=== PATIENT | female | born 2000 | race African-American/Black ===

== ENCOUNTER 2024-11-04 13:58 | Emergency (ER) | payer BC, SELFPAY ==
--- NOTE | ~2024-11-04 | XR_ITS ---
XR ankle RT min 3V 11/04/2024 14:29 INDICATION: Right ankle pain after injury PROCEDURE: 3 views right ankle COMPARISON: No prior studies for comparison. FINDINGS: Fracture, dislocation or subluxation is not identified. The soft tissues appear within norm al limits. No foreign bodies are identified. IMPRESSION: 1: NO ACUTE BONE OR JOINT ABNORMALITY IDENTIFIED. Reviewed, dictated and finalized at location A.
[2024-11-04 14:09] VITALS: BP 109/65; PULSE 104; RESP 16; TEMP 36.4; O2SAT 96
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
--- OUTSIDE RECORDS SUMMARY | 2024-11-04 15:03 | XMS_ITS | Referral Summary ---
Author Organization [facility] Address [address] [place] [id number] Care Team Providers Care Occupational Health Technician Name Role Phone Unknown, Notinfile Primary Care Provider Unavail able Encounters Date Type Department Care Team Description 09/03/2024 12:07 PM INLETTER - 09/03/2024 3:50 PM [facility] Emergency [address] [address] Abdominal pain (Primary Dx); Right ovarian cyst; Anemia, unspecified type Discharge Disposition: Discharge to home or self care from Last 3 Months Allergies Active Allergy Reactions Criticality Noted Date Comments Mustard Swollen tongue High 07/15/2023 Medications vitamin ferrous fumarate-folic () 28 mg iron- 800 mcg tablet Take 1 tablet by mouth daily 30 tablet 11 3 Active nitrofurantoin monohydrate (MACROBID) 100 mg capsule Take 1 capsule (100 mg total) by mouth 2 (two) times a day 10 capsule 4 Active ondansetron ODT (ZOFRAN-ODT) 4 mg disintegrating tablet Take 1 tablet (4 mg total) by mouth every 8 (eight) hours as needed for nausea or vomiting 20 tablet 4 Active ibuprofen (ADVIL,MOTRIN) 800 mg tablet Take 1 tablet (800 mg total) by mouth 3 (three) times a day 21 tablet 4 Active naproxen (NAPROSYN) 500 mg tablet Take 1 tablet (500 mg total) by mouth 2 (two) times a day with meals 30 tablet 4 Active lidocaine (LIDODERM) 5 %Indications:Pain Place 1 patch on the skin daily Use patch for 12 hours on, 12 hours off. Discard after each use 7 patch 5 Active naproxen (NAPROSYN) 500 mg tablet Take 1 tablet (500 mg total) by mouth 2 (two) times a day with meals 30 tablet 5 Active orphenadrine ER (NORFLEX) 100 mg 12 hr tabletIndications:M uscle Spasm Take 1 tablet (100 mg total) by mouth 2 (two) times a day for 14 days 28 tablet 5 Active levonorgestreL (PLAN B ONE-STEP) tabletIndications:P ostcoital Contraception Take 1 tablet (1.5 mg total) by mouth once for 1 dose 1 tablet 5 Active Active Problems Problem Noted Date Diagnosed Date care following vaginal delivery 07/16 Overview (07/17/2023): 07/16/2023 1000 (CZ) 23 yo sp of viable female infant. Her was complicated by NO care VSS, afebrile A+, Rubella Immune Hgb: 9.6 GBS Unknown Mom and baby doing well Active DCFS investigation - Social work following Normal exam Reports a lot of cramping - encouraged hot packs and alternating meds MOF: Formula MOC: Undecided VTE: Frequent ambulation Dispo: continue routine care 07/17/2023, PPD 2 (Peggy): Baby will be going with DCFS and not home with the patient. Ambulating, voiding, tolerating regular diet, pain controlled with ibuprofen. AF VSS WNL Normal exam Stable for discharge Routine discharge precautions Discharge prescription for ibuprofen Resolved Problems Problem Noted Date Diagnosed Date Resolved Date Normal labor 07/15/2023 07/17/2023 Overview (07/17/2023): 23 yo @ 41w0d here for contractions. She has had no pre-keo care. dating done and confirmed at only OB visit in 11/2022. VSS, afebrile A+, Rubella Immine Hgb: 9.6, plt 210 GBS unknown - initiate PCN Glucose testing not completed - BG 142 Plan q4 sugars, then q2 with AROM, and q1 with active labor (6cm). Reactive tracing SVE 250/-2 Plan IOL - Initiate OT titration. Consider AROM after 2nd dose of PCN Pain management per patient wishes Anticipated 07/15/23 @ 17:30 (BD): Labor: pitocin (current rate @ 10) - continue to titrate; AROM @ 17:30 - clear fluid GBS: unknown; s/p PCN x2 Pain: Epidural in place and working well FWB: continuous monitoring - cat.1; vertex by US; AGA on palpation - no care Glucose testing not completed - last BS - 87; Plan q4 sugars, then q2 with AROM, and q1 with active labor (6cm). Uterine contractions at grea ter than 20 weeks of gestation 07/15/2023 07/17/2023 Social History Tobacco Use Types Packs/Day Years Used Date Smoking Tobacco: Never Smokeless Tobacco: Never Tobacco Cessation:Counseling Given: Not Answered [facility] Utilities Answer Date Recorded In the past 12 months has [employer], oil, or water [employer] threatened to shut off services in your home? No 07/16/2023 Social Connection and Isolat ion Panel [NHANES] Answer Date Recorded In a typical week, how many times do you talk on the phone with family, friends, or neighbors? More than three times a week 07/16/2023 How often do you get togethe r with friends or relatives? More than three times a week 07/16/2023 How often do you attend chur ch or uatsdin services? Never 07/16/2023 Do you belong to any clubs o r organizations such as mu-ism groups, unions, fraternal or athletic groups, or school groups? No 07/16/2023 How often do you attend meet ings of the clubs or organizations you belong to? Never 07/16/2023 Are you , , di vorced, , never , or living with a partner? Never 07/16/2023 Overall Financial Resource Strain (CARDIA) Answe r Date Recorded How hard is it for you to pa y for the very basics like food, housing, medical care, and heating? Not hard at all 07/16/2023 Hunger Vital Sign Answer Date Recorded Within the past 12 months, y ou worried that your food would run out before you got the money to buy more. Never true 07/16/19 24 Within the past 12 months, t he food you bought just didn't last and you didn't have money to get more. Never true 07/16/2023 PRAPARE - Transportation Answer Date Re corded In the past 12 months, has l ack of transportation kept you from medical appointments or from getting medications? No 06/29 In the past 12 months, has l ack of transportation kept you from meetings, work, or from getting things needed for daily living? No 07/16/2023 Housing Stability Vital Sign Answer Chin e Recorded In the last 12 months, was t here a time when you were not able to pay the mortgage or rent on time? No 07/16/2023 Number of Places Lived in the Last Year Not on f ile 07/16/2023 In the last 12 months, was t here a time when you did not have a steady place to sleep or slept in a long term (including now)? No 07/16/2023 Frankfort Depression Scale Answer Date Recorded Frank[place] Depression Scale Total 1 07/16/2023 The thought of harming myself has occurred to me . Never 07/16/2023 Personal Safety Answer Date Recorded Have you ever been in or are you currently in a harmful physical or emotional relationship or is someone making you feel afraid or unsafe? Denies 09/03/2024 Comments No Sex and Gender Information Value Date Recorded Sex Assigned at Not on file Legal Sex Female 11:18 AM INLETTER Gender Identity Not on file Sexual Orientation Not on file Last Filed Vital Signs Vital Sign Reading Time Taken Comments Blood Pressure 109/75 09/03/2024 11:23 AM INLETTER Pulse 84 09/03/2024 11:23 AM INLETTER Temperature 37.3 C (99.1 F) 09/03/2024 11:23 AM INLETTER Respiratory Rate 20 09/03/2024 11:23 AM INLETTER Oxygen Saturation 100% 09/03/2024 11:23 AM INLETTER Inhaled Oxygen Concentration - - Weight 44.5 kg (98 lb) 09/03/2024 11:44 AM INLETTER Height 154.9 cm (5' 1 ) 02/04/2024 9:02 PM CDT Body Mass Index 18.52 02/04/2024 9:02 PM CDT Plan of Treatment Not on file Procedures Procedure Name Priority Date/Time Associated Diagnosis Comments CT ABDOMEN PELVIS WO CONTRAST ED 09/03/2024 2:19 PM INLETTER EGFR STAT 09/03/2024 11:59 AM INLETTER DIFFERENTIAL AUTO STAT 09/03/2024 11: 59 AM INLETTER LIPASE STAT 09/03/2024 11:59 AM INLETTER COMPREHENSIVE METABOLIC PANEL STAT 09/03/2024 11:59 AM INLETTER CBC WITH AUTO DIFFERENTIAL STAT 09/03/2024 11:59 AM INLETTER URINALYSIS AND REFLEX TO MICROSCOPIC AND CULTURE STAT 09/03/2024 11:51 AM INLETTER POCT HCG, URINE Routine 09/03/2024 11:45 AM INLETTER from Last 3 Months Results * CT Abdomen Pelvis WO Contrast (09/03/2024 2:19 PM INLETTER) Anatomical Region Laterality Modality Body N/A Computed Tomogra phy 09/03/2024 3:15 PM INLETTER Narrative 09/03/2024 3:24 PM INLETTER EXAM DESCRIPTION: CT ABDOMEN PELVIS WO CONTRAST REASON FOR STUDY: LLQ pain, pt refusing contrast 24 y.o. female presenting to the ED c/o LLQ abdominal pain since yesterday. Reports associated nausea when she smoked a cigarette but denies vomiting or fever. States that her LMP was 08/20/24 and has had some light spotting the past couple of days. Concerned that she may be . She did not take anything for pain at home. Neg preg test. Refusing contrast No known sx or ca TECHNIQUE: CT scan of the abdomen and pelvis performed without intravenous and without oral contrast using helical scanning technique. Reconstructed coronal and sagittal MPR images reviewed. All images stored on PACS. Automated exposure control was used as a dose optimization technique for this examination. COMPARISON: 12/05/2022 REFERENCE: Per ACR white paper recommendations, unless otherwise specified no follow-up imaging is recommended for incidental renal and adrenal lesions per consensus recommendations based on imaging criteria. Further lab evaluation could be pursued based on clinical findings. FINDINGS: Absence of intravenous contrast reduces sensitivity for detection of pathology. Significantly motion degraded examination. Findings made within these confines. LOWER CHEST: 3 mm perifissural nodule along the right oblique fissure likely fissural lymph node. 2 mm subpleural posterior left lower lobe pulmonary nodule (3; 2). LIVER: No concerning lesions by noncontrast technique. GALLBLADDER/BILE DUCTS: No significant biliary ductal dilatation. SPLEEN: Normal size. No focal concerning lesions. PANCREAS: No significant ductal dilatation or discrete lesion. ADRENALS: No measurable nodule. KIDNEYS/URETERS: No hydronephrosis. No obstructing nephroureterolithiasis. BLADDER/URINARY: No significant bladder wall thickening. REPRODUCTIVE: Anteflexed uterus without discrete fibroid. Ill-defined right adnexal cystic structure measuring up to 4.0 cm (2; 106). GASTROINTESTINAL: No dilated bowel loops. No obvious wall thickening. Appendix is not definitively visualized. However, there are no significant inflammatory changes within the right lower quandrant. LYMPH NODES: No pathologically enlarged abdominal or pelvic lymphadenopathy. PERITONEUM/RETROPERITONEUM: No free air. Small volume free fluid in the pelvis, favored physiologic. VASCULATURE: No abdominal aortic aneurysm. MUSCULOSKELETAL: No aggressive appearing osseous lesions. No acute osseous abnormality. OTHER: No significant abnormality. IMPRESSION: Suboptimal evaluation given significant patient motion and lack of intravenous contrast. Findings are made within these confines. No definite acute abnormality within the abdomen or pelvis. Ill-defined right adnexal cystic structure measuring up to 4.0 cm. Consider pelvic ultrasound for further evaluation. Small volume free fluid in the pelvis, favored physiologic. Incidental and chronic findings as above. THIS IS AN ELECTRONICALLY VERIFIED FINAL REPORT 09/03/2024 3:24 PM - Electronically signed by Pepe Cordero M.D. NS T: Report ID: [id number] Reading Location: [place] [address] Procedure Note Pepe Cordero MD - 09/03/2024 EXAM DESCRIPTION: CT ABDOMEN PELVIS WO CONTRAST REASON FOR STUDY: LLQ pain, pt refusing contrast 24 y.o. female presenting to the ED c/o LLQ abdominal pain sinceyesterday. Reports associated nausea when she smoked a cigarette but denies vomitingor fever. States that her LMP was 08/20/24 and has had some light spotting the past couple of days. Concerned that she may be . She did nottake anything for pain at home. Neg preg test. Refusing contrast No known sxor ca TECHNIQUE: CT scan of the abdomen and pelvis performed without intravenousand without oral contrast using helical scanning technique. Reconstructed coronal and sagittal MPR images reviewed. All images stored on PACS.Automated exposure control was used as a dose optimization technique for this examination. COMPARISON: 12/05/2022 REFERENCE: Per ACR white paper recommendations, unless otherwise specifiedno follow-up imaging is recommended for incidental renal and adrenal lesionsper consensus recommendations based on imaging criteria. Further labevaluation could be pursued based on clinical findings. FINDINGS: Absence of intravenous contrast reduces sensitivity fordetection of pathology. Significantly motion degraded examination. Findings madewithin these confines. LOWER CHEST: 3 mm perifissural nodule along the right oblique fissurelikely fissural lymph node. 2 mm subpleural posterior left lower lobe pulmonary nodule (3; 2). LIVER: No concerning lesions by noncontrast technique. GALLBLADDER/BILE DUCTS: No significant biliary ductal dilatation. SPLEEN: Normal size. No focal concerning lesions. PANCREAS: No significant ductal dilatation or discrete lesion. ADRENALS: No measurable nodule. KIDNEYS/URETERS: No hydronephrosis. No obstructingnephroureterolithiasis. BLADDER/URINARY: No significant bladder wall thickening. REPRODUCTIVE: Anteflexed uterus without discrete fibroid. Ill-definedright adnexal cystic structure measuring up to 4.0 cm (2; 106). GASTROINTESTINAL: No dilated bowel loops. No obvious wall thickening. Appendix is not definitively visualized. However, there are no significant inflammatory changes within the right lower quandrant. LYMPH NODES: No pathologically enlarged abdominal or pelviclymphadenopathy. PERITONEUM/RETROPERITONEUM: No free air. Small volume free fluid in the pelvis, favored physiologic. VASCULATURE: No abdominal aortic aneurysm. MUSCULOSKELETAL: No aggressive appearing osseous lesions. No acuteosseous abnormality. OTHER: No significant abnormality. IMPRESSION: Suboptimal evaluation given significant patient motion andlack of intravenous contrast. Findings are made within these confines. No definite acute abnormality within the abdomen or pelvis. Ill-defined right adnexal cystic structure measuring up to 4.0 cm.Consider pelvic ultrasound for further evaluation. Small volume free fluid in the pelvis, favored physiologic. Incidental and chronic findings as above. THIS IS AN ELECTRONICALLY VERIFIED FINAL REPORT 09/03/2024 3:24 PM - Electronically signed by Pepe Cordero M.D. NS T: Report ID: [id number] Reading Location: [place] [address] [address] IMG [address] PROCEDURES Final Result * eGFR (09/03/2024 11:59 AM INLETTER) eGFR >90 >=60 mL/min/1. 73 m2 Comment: Interpretive Data Reference Interval Normal >/= 90 mL/min/1.73m2 Mildly decreased* 60 - 89 mL/min/1.73m2 Mildly to moderately decreased 45 - 59 mL/min/1.73m2 Moderately to severely decreased 30 - 44 mL/min/1.73m2 Severely decreased 15 - 29 mL/min/1.73m2 Kidney Failure < 15 mL/min/1.73m2 *Relative to young adult level Estimated glomerular filtration rate is determined by the 2020 CKD-EPI equation recommended by the National Kidney Foundation (A Unifying Approach to GFR Estimation: Recommendations of the NKF-ASK Task Force on Reassessing the Inclusion of Race in Diagnosing Kidney Disease, JASN 2020). The CKD-EPI equation should not be used for patients with unstable renal function and has not been validated in children and those over 70. Current interpretive data was last reviewed 2021. Blood 09/03/2024 11:5 9 AM INLETTER 09/03/2024 12:04 PM INLETTER us Artur Mc MD LAB BLOOD ORDERABLES Final Resul t [facility] [address] [facility] Department [place] [address] * Differential, auto (09/03/2024 11:59 AM INLETTER) Neutrophil abs 4.0 1.5 - 6.5 K/cumm Imm gran abs 0.0 0.0 - 0.1 K/cumm [facility] Lymphocyte abs 2.1 0.8 - 3.3 K/cumm [facility] Monocyte abs 0.5 0.2 - 0.8 K/cumm [facility] Eosinophil abs 0.1 0.0 - 0.5 K/cumm [facility] Basophil abs 0.0 0.0 - 0.1 K/cumm [facility] Neutrophil pct 59.6 % [facility] Comment: Interpretive Data Percent cell count reference ranges are not reported, since discordance with absolute values may lead to misinterpretation of CBC data. Current Interpretive Data was last revised on 2017. Imm gran pct 0.2 % [facility] Comment: Interpretive Data Percent cell count reference ranges are not reported, since discordance with absolute values may lead to misinterpretation of CBC data. Current Interpretive Data was last revised on 2017. Lymphocyte pct 31.8 % [facility] Comment: Interpretive Data Percent cell count reference ranges are not reported, since discordance with absolute values may lead to misinterpretation of CBC data. Current Interpretive Data was last revised on 2017. Monocyte pct 7.0 % [facility] Comment: Interpretive Data Percent cell count reference ranges are not reported, since discordance with absolute values may lead to misinterpretation of CBC data. Current Interpretive Data was last revised on 2017. Eosinophil pct 0.9 % [facility] Comment: Interpretive Data Percent cell count reference ranges are not reported, since discordance with absolute values may lead to misinterpretation of CBC data. Current Interpretive Data was last revised on 2017. Basophil pct 0.5 % [facility] Comment: Interpretive Data Percent cell count reference ranges are not reported, since discordance with absolute values may lead to misinterpretation of CBC data. Current Interpretive Data was last revised on 2017. Blood 09/03/2024 11:5 9 AM INLETTER 09/03/2024 12:04 PM INLETTER us Artur Mc MD LAB BLOOD ORDERABLES Final Resul t Performing Organization Address [facility] Co de Phone Number [address] [address] * (ABNORMAL) CBC with auto differential (09/03/2024 11:59 AM INLETTER) WBC 6.6 3.8 - 9.9 K/cumm Hgb 11.6(L) 11.9 - 15.5 g/dL [facility] Hct 35.8 35.6 - 45.5 % [facility] Plt 284 150 - 400 K/cumm [facility] MPV 9.5 9.1 - 12.[address] [facility] RBC 4.16 3.90 - 5.20 M/cumm [facility] MCV 86.1 81.3 - 96.[address] [facility] MCH 27.9 27.1 - 33.[address] [facility] MCHC 32.4 32.3 - 35.7 g/dL [facility] RDW CV 15.1(H) 11.1 - 14.9 % [facility] RDW SD 47.6 35.7 - 48.[address] [facility] NRBC abs 0.00 0.00 - 0.01 K/cumm [facility] Blood Venous blood specimen / Unknown 09/03/2024 11:59 AM INLETTER 09/03/2024 12:04 PM INLETTER us Artur Mc MD LAB BLOOD ORDERABLES Final Resul t Performing Organization Address [facility] Co de Phone Number [address] [place] [address] * Lipase (09/03/2024 11:59 AM INLETTER) Pathologist [facility] Lipase 36 10 - 99 Units/L Blood Venous blood specimen / Unknown 09/03/2024 11:59 AM INLETTER 09/03/2024 12:04 PM INLETTER us Artur Mc MD LAB BLOOD ORDERABLES Final Resul t Performing Organization Address City/[facility] Co de Phone Number [address] [place] [address] * Comprehensive metabolic panel (09/03/2024 11:59 AM INLETTER) Sodium 143 135 - 145 mmol/L Potassium, pl 4.0 3.3 - 4.9 mmol/L [facility] Comment:Hemolyzed; Potassium value may be falsely elevated by as much as 1.0 mmol/L. Suggest redraw and reanalysis. Chloride 109 97 - 110 mmol/L [facility] CO2 24 22 - 32 mmol/L [facility] Anion gap 10 2 - 15 mmol/L [facility] BUN 11 6 - 25 mg/dL [facility] Creatinine 0.75 0.60 - 1.10 mg/dL [facility] Glucose 95 70 - 199 mg/dL [facility] Comment: Interpretive Data Fasting glucose >/= 126 mg/dl is diagnostic for diabetes. Fasting is defined as no caloric intake for at least 8 hours. Fasting glucose between 100 mg/dl to 125 mg/dl is diagnostic of prediabetes. In a patient with classic symptoms of hyperglycemia or hyperglycemic crisis, a random glucose >/= 200 mg/dl is diagnostic for diabetes. In the absence of unequivocal hyperglycemia, results should be confirmed by repeat testing. The classification and Diagnosis of Diabetes Diabetes Care 2021; 46: S19-S40. Current interpretive data was last revised 2022. Calcium 9.4 8.5 - 10.3 mg/dL [facility] Bilirubin, total 0.6 0.1 - 1.2 mg/dL [facility] Protein, pl 7.4 6.5 - 8.5 g/dL [facility] Albumin 4.3 3.5 - 5.0 g/dL [facility] Alk phos 60 40 - 130 Units/L [facility] ALT 8 7 - 45 Units/L [facility] AST See Comment 10 - [address] [facility] Comment:Credited; Hemolyzed Specimen Blood 09/03/2024 11:5 9 AM INLETTER 09/03/2024 12:04 PM INLETTER us Artur Mc MD LAB BLOOD ORDERABLES Final Resul t [facility] [address] [facility] [place] [address] * Urinalysis reflex to microscopic and culture Urine (09/03/2024 11:51 AM INLETTER) Color, ur Yellow Yellow Clarity, ur Clear Clear [facility] Specific gravity, ur 1.023 1.003 - 1.[address] [facility] pH, urine 8.[address] [facility] Comment: Interpretive Data U rine pH is affected by diet, medications, systemic acid-base disturbances, and renal tubular function. pH may affect urinary stone formation. For example, urine pH below 6.0 may help reduce the tendency for calcium phosphate stones and pH greater than 6.0 may reduce the tendency for uric acid stone formation. Source: [facility] Current Interpretive Data was last revised on 2017 Protein, ur ql Negative Negative [facility] Glucose, ur ql Negative Negative [facility] Ketones, ur Negative Negative [facility] Bilirubin, ur Negative Negative [facility] Blood, ur Negative Negative [facility] Urobilinogen, ur <2.0 <2.0 mg/dL [facility] Nitrite, ur Negative Negative [facility] Leukocyte esterase, ur Negative Negative [facility] UA reflex comment Reflex conditions for microscopic UA and culture not met. [facility] Urine 09/03/2024 11:5 1 AM INLETTER 09/03/2024 11:54 AM INLETTER Artur Mc MD LAB MICROBIOLOGY - GENERAL ORDER MARIA L Final Result Performing Organization Address City/State/[facility] Co de Phone Number [place] [phone] [place] [address] * POCT hCG, urine (09/03/2024 11:45 AM INLETTER) HCG, ur, POC Negative Negative Lot Number [id number] QC Backgroud Clear Acceptable QC Control Line Acceptable Urine 09/03/2024 11:4 5 AM INLETTER Artur Mc MD POINT OF CARE TEST ORDERABLES Fi nal Result from Last 3 Months Insurance [facility] [address] [facility] Advance Directives For more information, please contact: [phone] * Full Code (Latest Code Status on File) Date Activated Date Inactivated Comments 07/15/2023 9:40 PM 07/17/2023 6:46 PM * Full Code Date Activated Date Inactivated Comments 07/15/2023 8:01 AM 07/15/2023 9:40 PM Care Teams Occupational Health Technician Relationship Specialty Start Date End Date Unknown, Notinfile PCP - General 01/13/24
--- OUTSIDE RECORDS SUMMARY | 2024-11-04 15:03 | XMS_ITS | Clinical Summary ---
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 She has had no pre- care. dating done and confirmed at only [...] with active labor (6cm). [facility] 07/15/2023 07/17/2023 Encounters Date Type Department Care Team Description 09/03/2024 12:07 PM [facility] - 09/03/2024 3:50 PM [facility] Emergency [place] [phone] Abdominal pain (Primary Dx); Right ovarian cyst; Anemia, unspecified type Discharge Disposition: Discharge to home or self care from Last 3 Months Surgical History Surgery Date Site/Laterality Comments US ABDOMEN COMPLETE W LIVER DOPPLER (C) 08/04/2018 R ight Family History Medical History Relation Name Comments Breast cancer Neg Hx Ovarian cancer Neg Hx Uterine cancer Neg Hx Social History Tobacco Use Types Packs/Day Years Used Date Smoking Tobacco: Never Smokeless Tobacco: Never Tobacco Cessation:Counseling Given: Not Answered [facility] Utilities Answer Date Recorded In the past 12 months has [employer], gas, oil, or water [employer] threatened to shut off services in your [...] often do you attend chur ch or church services? Never 07/16/2023 Do you belong to any clubs o r organizations such as muslim groups, unions, fraternal or athletic groups, or [...] place to sleep or slept in a prison (including now)? No 07/16/2023 Biggers Depression Scale Answer Date Recorded Biggers Depression Scale Total 1 07/16/2023 The thought [...] on file Legal Sex Female 11:18 AM [employer] Gender Identity Not on file Sexual Orientation Not on file Obstetrics History Para Term AB IAB SAB Ectopic Multiple Livin g Live Births 4 3 3 1 1 0 3 3 Date Outcome GA Total Labor Labor/2nd/3rd Weight Sex Type Anes PTL Selene A1 A5 Name Clin Term Livin g Term Livin g 2022 SAB SAB 2023 Term 41w 0d 0h 36m 0h 32m/0h 04m 3.57 kg (7 lb 13.9 oz) F Vagina l Epidur al N Livin g 8 9 Celestinoil teresita N C Ivelisse Gatica am, MD Complications:None Delivery Location:[facility] Main C ampus ([facility]) Last Filed Vital Signs Vital Sign Reading Time Taken Comments Blood Pressure 109/75 09/03/2024 11:23 AM [employer] Pulse 84 09/03/2024 11:23 AM [employer] Temperature 37.3 C (99.1 F) 09/03/2024 11:23 AM [employer] Respiratory Rate 20 09/03/2024 11:23 AM [employer] Oxygen Saturation 100% 09/03/2024 11:23 AM [employer]ER Inhaled Oxygen Concentration - - Weight 44.5 kg (98 lb) 09/03/2024 11:44 AM [employer] Height 154.9 cm (5' 1 ) 02/04/2024 9:02 PM CDT Body Mass Index 18.52 02/04/2024 9:02 PM CDT Plan of Treatment Health Maintenance Due Date Last Done Comments Cervical Cancer Screening 1998 Hepatitis C Screening 1998 Regular Well Visit/Exam 18-64 2016 HPV Vaccines (3 - 3-dose series) 09/02/2018 06/10/2018, 08/08/2013 DTaP/Tdap/Td Vaccine (4 - Td or Tdap) 08/08/2023 08/08/2013, 1998, 1998 Depression Screening 07/16/2024 07/16/2023 Influenza Vaccine (Season Ended) 2025 06/10/2018, 08/18/2017, 07/20/2014 Hepatitis B Screening Completed 1998 , 1998, 1998 Varicella Vaccines Completed 08/08/2013, 02/12/2007 Pneumococcal vaccine <65 Aged Out No longer eligible based on patient's age to complete this topic Procedures Procedure Name Priority Date/Time Associated Diagnosis Comments CT ABDOMEN PELVIS WO CONTRAST ED 09/03/2024 2:19 PM [employer] [employer] [facility] EGFR STAT 09/03/2024 11:59 AM [employer] DIFFERENTIAL AUTO STAT 09/03/2024 11: 59 AM [employer] [facility] LIPASE STAT 09/03/2024 11:59 AM [employer] COMPREHENSIVE METABOLIC PANEL STAT 09/03/2024 11:59 AM [employer] CBC WITH AUTO DIFFERENTIAL STAT 09/03/2024 11:59 AM [employer]ER URINALYSIS AND REFLEX TO MICROSCOPIC AND CULTURE STAT 09/03/2024 11:51 AM [employer]ER POCT HCG, URINE Routine 09/03/2024 11:45 AM C[employer] SE[employer] C[employer]ER from Last 3 Months Results * CT Abdomen Pelvis WO Contrast (09/03/2024 2:19 PM [employer]ER) Anatomical Region Laterality Modality Body N/A Computed Tomogra phy 09/03/2024 3:15 PM [employer]ER Narrative 09/03/2024 3:24 PM [employer] SE[employer]ER EXAM DESCRIPTION: CT ABDOMEN PELVIS WO CONTRAST [...] 3:24 PM - Electronically signed by Pepe SCHWARTZ T: Report ID: [id number] Reading Location: [place] [address] Procedure Note Pepe Cordero MD - 09/03/2024 [...] Pepe Cordero M.D. NS T: Report ID: [id number] Reading Location: [place] [address] us [address] CALL[address]AN IMG CT PROCEDURES Final Result * eGFR (09/03/2024 11:59 AM [employer]ER) eGFR >90 >=60 mL/min/1. 73 m2 Comment: [...] reviewed 2021. Blood 09/03/2024 11:5 9 AM [employer]ER 09/03/2024 12:04 PM [employer] us Artur Mc MD LAB BLOOD ORDERABLES Final Resul t [facility] [address] [facility] Department of Laboratories [place], [place] [id number] * Differential, auto (09/03/2024 11:59 AM [employer]) Neutrophil abs 4.0 1.5 - 6.5 K/cumm Imm gran abs 0.0 0.0 - 0.1 K/cumm [facility] Lymphocyte abs 2.1 0.8 - 3.3 K/cumm [facility] Monocyte abs 0.5 0.2 - 0.8 K/cumm [facility] Eosinophil abs 0.1 0.0 - 0.5 K/cumm [facility] Basophil abs 0.0 0.0 - 0.1 K/cumm [facility] Neutrophil pct 59.6 % [facility] Comment: Interpretive Data Percent cell count reference ranges are not reported, since discordance with absolute values may lead to misinterpretation of CBC data. Current Interpretive Data was last revised on 2017. Imm gran pct 0.2 % [facility] Comment: Interpretive Data Percent cell count reference ranges are not reported, since discordance with absolute values may lead to misinterpretation of CBC data. Current Interpretive Data was last revised on 2017. Lymphocyte pct 31.8 % [facility] Comment: Interpretive Data Percent cell count reference ranges are not reported, since discordance with absolute values may lead to misinterpretation of CBC data. Current Interpretive Data was last revised on 2017. Monocyte pct 7.0 % [facility] Comment: Interpretive Data Percent cell count reference ranges are not reported, since discordance with absolute values may lead to misinterpretation of CBC data. Current Interpretive Data was last revised on 2017. Eosinophil pct 0.9 % [facility] Comment: Interpretive Data Percent cell count reference ranges are not reported, since discordance with absolute values may lead to misinterpretation of CBC data. Current Interpretive Data was last revised on 2017. Basophil pct 0.5 % [facility] Comment: Interpretive Data Percent cell count reference ranges are not reported, since discordance with absolute values may lead to misinterpretation of CBC data. Current Interpretive Data was last revised on 2017. Blood 09/03/2024 11:5 9 AM [employer] [facility]ER 09/03/2024 12:04 PM [employer] us Artur Mc MD LAB BLOOD ORDERABLES Final Resul t [facility] [address] [facility] Department [place] [address] * (ABNORMAL) CBC with auto differential (09/03/2024 11:59 AM [employer]) WBC 6.6 3.8 - 9.9 K/cumm Hgb 11.6(L) 11.9 - 15.5 g/dL [facility] Hct 35.8 35.6 - 45.5 % [facility] Plt 284 150 - 400 K/cumm [facility] MPV 9.5 9.1 - 12.3 fL [facility] RBC 4.16 3.90 - 5.20 M/cumm [facility] MCV 86.1 81.3 - 96.4 fL [facility] MCH 27.9 27.1 - 33.3 pg [facility] MCHC 32.4 32.3 - 35.7 g/dL [facility] RDW CV 15.1(H) 11.1 - 14.9 % [facility] RDW SD 47.6 35.7 - 48.1 fL [facility] NRBC abs 0.00 0.00 - 0.01 K/cumm [facility] Blood Venous blood specimen / Unknown 09/03/2024 11:59 AM [employer] 09/03/2024 12:04 PM [employer] Artur Mc MD LAB BLOOD ORDERABLES Final Resul t Performing Organization Address [facility] de Phone Number [address] [place] [address] * Lipase (09/03/2024 11:59 AM [facility] [employer]) [facility] Lipase 36 10 - 99 Units/L Blood Venous blood specimen / Unknown 09/03/2024 11:59 AM [employer] 09/03/2024 12:04 PM [employer] Artur Mc MD LAB BLOOD ORDERABLES Final Resul t Performing Organization Address [facility] de Phone Number [address] [employer] [place] [address] * Comprehensive metabolic panel (09/03/2024 11:59 AM C[employer] SE[employer] C[employer]ER) [facility] Sodium 143 135 - 145 mmol/L Potassium, pl 4.0 3.3 - 4.9 mmol/L [facility] Comment:Hemolyzed; Potassium value may be falsely elevated by as much as 1.0 mmol/L. Suggest redraw and reanalysis. Chloride 109 97 - 110 mmol/L [facility] CO2 24 22 - 32 mmol/L [facility] Anion gap 10 2 - 15 mmol/L [facility] BUN 11 6 - 25 mg/dL [facility] Creatinine 0.75 0.60 - 1.10 mg/dL [facility] Glucose 95 70 - 199 mg/dL [facility] Comment: Interpretive Data Fasting glucose >/= [...] classification and Diagnosis of Diabetes Diabetes Care 202; 46: S19-S40. Current interpretive data was last revised 2022. Calcium 9.4 8.5 - 10.3 mg/dL [facility] Bilirubin, total 0.6 0.1 - 1.2 mg/dL [facility] Protein, pl 7.4 6.5 - 8.5 g/dL [facility] Albumin 4.3 3.5 - 5.0 g/dL [facility] Alk phos 60 40 - 130 Units/L [facility] ALT 8 7 - 45 Units/L [facility] AST See Comment 10 - 45 [facility] Comment:Credited; Hemolyzed Specimen Blood 09/03/2024 11:5 9 AM [employer]ER 09/03/2024 12:04 PM [employer]ER us Artur Mc MD LAB BLOOD ORDERABLES Final Resul t [facility] [address] [facility] Department of Laboratories [place], [place] [id number] * Urinalysis reflex to microscopic and culture Urine (09/03/2024 11:51 AM [employer]) Color, ur Yellow Yellow Clarity, ur Clear Clear [facility] Specific gravity, ur 1.023 1.003 - 1.030 [facility] pH, urine 8.5 [facility] Comment: Interpretive Data U rine pH is affected by diet, medications, systemic acid-base disturbances, and renal tubular function. pH may affect urinary stone formation. For example, urine pH below 6.0 may help reduce the tendency for calcium phosphate stones and pH greater than 6.0 may reduce the tendency for uric acid stone formation. Source: [facility] Current Interpretive Data was last revised on 2017 Protein, ur ql Negative Negative [facility] Glucose, ur ql Negative Negative [facility] Ketones, ur Negative Negative [facility] Bilirubin, ur Negative Negative [facility] Blood, ur Negative Negative [facility] Urobilinogen, ur <2.0 <2.0 mg/dL [facility] Nitrite, ur Negative Negative [facility] Leukocyte esterase, ur Negative Negative [facility] UA reflex comment Reflex conditions for microscopic UA and culture not met. [facility]IAS Urine 09/03/2024 11:5 1 AM [employer]ER 09/03/2024 11:54 AM [employer] Artur Mc MD LAB MICROBIOLOGY - GENERAL ORDER MARIA L Final Result Performing Organization Address City/State/[facility] Co de Phone Number [facility] [address] [facility] Department [place] [address] * POCT hCG, urine (09/03/2024 11:45 AM [employer]ER) HCG, ur, POC Negative Negative Lot Number [id number] QC Backgroud Clear Acceptable QC Control Line Acceptable Urine 09/03/2024 11:4 5 AM [employer] Artur Mc MD POINT OF CARE TEST ORDERABLES Fi nal Result from Last [address] [place] [address] [address] [place] [address] PLAN [facility] Advance Directives For more information, please contact: [phone] * Full Code (Latest Code Status on File) Date Activated Date Inactivated Comments 07/15/2023 9:40 PM 07/17/2023 6:46 PM * Full Code Date Activated Date Inactivated Comments 07/15/2023 8:01 AM 07/15/2023 9:40 PM Care Teams Meat Cutter Apprentice Relationship Specialty Start Date End Date Unknown, Notinfile PCP - General 01/13/24
== END 2024-11-04 16:09 | disposition home or self-care (01) ==
PROVIDERS: Emergency Provider Emergency Medicine
DX: S93.401A Sprain of unspecified ligament of right ankle, initial encounter (principal); S91.001A Unspecified open wound, right ankle, initial encounter; W23.0XXA Caught, crushed, jammed, or pinched between moving objects, initial encounter
CPT/HCPCS: 73610; 99283